=== PATIENT | male | born 1960 | race Caucasian/White ===

== ENCOUNTER 2017-09-06 19:11 | Emergency (ER) | payer BC ==
--- NOTE | 2017-09-06 19:34 | EDPHY ---
H & P Time Seen by Provider: 09/06/17 19:34 Constitutional: Initial Vital Signs Temperature (C) 36.6 C 09/06/17 19:32 Heart Rate 40 L 09/06/17 19:32 Respiratory Rate 16 09/06/17 19:32 Blood Pressure 101/66 09/06/17 19:32 O2 Sat (%) 92 09/06/17 19:32 O2 Delivery Mode Nasal Cannula O2 (L/minute) 2 Allergies/Adverse Reactions: No Known Allergies Allergy (Unverified 09/06/17 19:32) Home Medications: Medication Instructions Recorded Aspirin 09/06/17 Lipitor 09/06/17 Medical Decision Making - Diagnostics Imaging: I viewed and interpreted images myself ED Course/Re-evaluation: CHIEF COMPLAINT: Left elbow injury HISTORY OF PRESENT ILLNESS: The patient is a 57 y/o male arriving with his daughters complaining of left elbow injury. He tripped on a curb and landed directly on his left elbow this evening. He had immediate pain and then looked at his elbow and became lightheaded. He denies preceding lightheadedness, dyspnea, or chest pain at any point. He denies other injuries, did not strike his head or lose consciousness. No headache, neck pain, back pain, weakness, paresthesias, or visible trauma. REVIEW OF SYSTEMS: A 10 point review of systems was performed and is negative with the exception of the elements mentioned in the history of present illness. PHYSICAL EXAM: HR, BP, O2 Sat, RR. Temp noted General Appearance: Alert, well hydrated, appropriate, and non-toxic appearing. Head: Atraumatic without scalp tenderness or obvious injury Eyes: Pupils equal, round, reactive to light and accommodation, EOMI, no trauma , no injection. Nose: Atraumatic, no rhinorrhea, clear. Throat: Mucus membranes moist. Neck: Supple Respiratory: No retractions, no distress, no wheezes, and no accessory muscle use. Lungs are clear to auscultation bilaterally. Cardiovascular: Regular rate and rhythm, no murmurs, rubs, or gallops. Left radial pulse intact. Good capillary refill all extremities. Gastrointestinal: Abdomen is soft, nontender, non-distended, no masses, no rebound, no guarding, no peritoneal signs. Musculoskeletal: Deformity to left elbow with tenderness and swelling. Otherwise normal active ROM of all extremities, atraumatic. Neurological: Alert, appropriate, and interactive. The patient has non-focal cranial nerves, motor, sensory, and cerebellar exam. Skin: No rashes, good turgor, no nodules on palpation. 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 Indication: Reduction of elbow fracture-dislocation The patient is an appropriate candidate to tolerate procedural sedation. The patient's vitals signs and mental status are appropriate. The risks, benefits and alternatives of the sedation were discussed with the patient. The patient is ASA classification 1. The patient's Mallampati airway score was 1 and the patient did meet the 3-3-2 airway measurements. A time out was completed. The patient was sedated with 20mg IV Ketamine and 40mg IV Propofol. The patient was monitored with continuous pulse oximetry, quality assurance monitor and end tidal CO2. There were no complications and no significant hypoxemia. I performed both the sedation and the procedure. The total time I spent at the bedside during the procedural sedation was 25 minutes. The patient was examined after the procedural sedation and has returned to their pre-sedation baseline with normal vital signs and a normal examination. Procedure: Reduction of displaced and dislocated left elbow fracture Time-out completed immediately before the procedure. IV established. O2 administered. Placed on pulse oximeter and ETCO2 monitor. Neurovascular exam intact pre-procedure. Given 20mg IV Ketamine and 60mg IV Propofol for pain and sedation. The left displaced elbow fracture was reduced using traction. Reassessed post-procedure. Neurovascular status intact-Normal Motor and sensory exam. Exam indicated reduction. Confirmed reduction on X-ray. Splint applied by myself/tech. The procedure was performed by myself, Dr. Jones Post-reduction left elbow x-ray: improved placement of radial head and proximal ulna. DIFFERENTIAL DIAGNOSIS: The differential diagnosis for the patient's elbow injury included but was not limited to fracture, ligamentous injury, contusion, muscular strain. MEDICAL DECISION MAKING: This is a 57 y/o male who presents with left elbow injury and deformity secondary to a mechanical fall this evening. He is neurovascularly intact without evidence of open fracture or compartment syndrome. Joints above and below the injury are stable. Plan for imaging and pain medication. He will likely require conscious sedation and reduction. 100mcg IV Fentanyl and 4mg IV Zofran administered. X-ray shows dislocated radial head and transverse fracture of proximal ulna. Patient prepped for sedation and reduction. Patient tolerated sedation and reduction well. Splint applied. Discussed fracture management with him and his daughters. He will be discharged with standard fracture follow up instructions and pain medication. Return precautions discussed. They are comfortable with this plan. Departure - Departure Disposition: Home, Routine, Self-Care Clinical Impression: Fracture dislocation of left elbow joint Qualifiers: Encounter type: initial encounter Fracture type: closed Qualified Code(s): S42.402A - Unspecified fracture of lower end of left humerus, initial encounter for closed fracture Condition: Good Instructions: Elbow Dislocation (ED), Elbow Fracture (ED) Additional Instructions: 1. Keep splint and sling in place until follow up with orthopedist. 2. Use Percocet as prescribed when needed for pain. Take constipation precautions while using this medication. 3. Follow up with orthopedic surgeon next week without fail. 4. Return to the ED for severe pain, weakness or numbness in your fingers, or other worsening of condition. Referrals: Geremias Hendrix MD [Medical Doctor] - As per Instructions Report Scribed for: Melchor Jones Report Scribed by: Tamiko Rivera Date of Report: 09/06/17 Time of Report: 19:42
[2017-09-06 19:35] VITALS: RESP 16
[2017-09-06] MEDS ORDERED: ONDANSETRON 4 MG/2 ML VIAL IVP ONE (19:35)
[2017-09-06] MEDS ORDERED: fentaNYL 100 MCG/2 ML INJ IVP ONE (19:35)
[2017-09-06] MEDS ORDERED: PROPOFOL 200 MG/20 ML VIAL IVP ONE (20:00)
[2017-09-06] MEDS ORDERED: KETAMINE 100 MG/10 ML SYR IVP ONE (20:00)
[2017-09-06] MEDS ORDERED: PROPOFOL 200 MG/20 ML VIAL ONE (20:03)
[2017-09-06] MEDS ORDERED: KETAMINE 100 MG/10 ML SYR ONE (20:03)
[2017-09-06] MEDS ORDERED: OXYCODONE/APAP 5/325MG PREPACK#4 BTL TAKEHOME ONE (20:40)
[2017-09-06] MEDS ORDERED: OXYCODONE/APAP 5/325 TAB PO ONE (21:19)
[2017-09-06 21:36] VITALS: BP 132/82; PULSE 58; TEMP 98.2; O2SAT 95
== END 2017-09-06 21:36 | disposition home or self-care (01) ==
PROC: 0PSJXZZ Reposition Left Radius, External Approach (ICD-10-PCS; principal; 2017-09-06)
DX: S52.122A Displaced fracture of head of left radius, initial encounter for closed fracture (principal); S52.002A Unspecified fracture of upper end of left ulna, initial encounter for closed fracture; W01.198A Fall on same level from slipping, tripping and stumbling with subsequent striking against other object, initial encounter
CPT/HCPCS: 96374; J2405; J2704; J3010; L3980